=== PATIENT | male | born 1955 | race Caucasian/White ===

== ENCOUNTER 2016-12-07 07:16 | Day surgery (SDC) | payer BC ==
[2016-12-07] MEDS ORDERED: Lactated Ringers 1,000 ML IV SCH (08:15)
[2016-12-07] MEDS ORDERED: Propofol 200 MG/20 ML SDV IV ONE (08:30)
[2016-12-07] MEDS ORDERED: Midazolam 1 MG/ML 2 ML SDV IV ONE (08:30)
--- NOTE | 2016-12-07 09:00 | PCM.OPNOTE ---
- General Post-Op/Procedure Note Date of Surgery/Procedure: 12/07/16 Operative Procedure(s): c scope Findings: normal scope Pre Op Diagnosis: screening Post-Op Diagnosis: nl scope Anesthesia Technique: MAC Primary Surgeon: Kameron Graham Anesthesia Provider: Billie Sebastian Pathology: none Complications: None Condition: Good Free Text/Narrative:: see dictation
[2016-12-07 10:19] VITALS: BP 128/78
--- NOTE | 2016-12-07 12:16 | OR ---
DATE OF OPERATION: 12/07/2016 SURGEON: Kameron Graham MD PROCEDURE PERFORMED: Colonoscopy. PREOPERATIVE DIAGNOSIS: Colon cancer screening. POSTOPERATIVE DIAGNOSIS: Normal scope. INDICATIONS FOR PROCEDURE: This is a 61-year-old white male, who presents for a screening colonoscopy. He was offered and accepted same. DESCRIPTION OF OPERATION: After an excellent IV sedation was administered, digital rectal exam was performed. No marked abnormality was noted. Flexible colonoscope was inserted and advanced without difficulty to the cecum. The prep was excellent. The following findings were noted: Ascending colon, unremarkable. Transverse colon, unremarkable. Descending colon, unremarkable. Sigmoid and rectum unremarkable. Colon was deflated, scope was removed. The patient tolerated the procedure well and was taken to recovery in good condition. Repeat scope in 10 years. /[id number] /MODL
== END 2016-12-07 10:10 | disposition home or self-care (01) ==
LOC: FB.SDS 07:16
PROVIDERS: ATTEND Surgery
DX: Z12.11 Encounter for screening for malignant neoplasm of colon (principal); N40.0 Benign prostatic hyperplasia without lower urinary tract symptoms; E78.00 Pure hypercholesterolemia, unspecified; Z79.899 Other long term (current) drug therapy
CPT/HCPCS: 45378; J2250; J2704; J7120